=== PATIENT | male | born 1975 | race Caucasian/White ===

== ENCOUNTER 2025-02-10 22:19 | Outpatient (CLI) | payer OTHER, SELFPAY | END 2025-02-10 22:20 | disposition home or self-care (01) | LOC: AMB 02-11 11:19 | PROVIDERS: Visit Provider Family Medicine | DX: S39.92XA Unspecified injury of lower back, initial encounter (principal); V68.0XXA Driver of heavy transport vehicle injured in noncollision transport accident in nontraffic accident, initial encounter; Y92.410 Unspecified street and highway as the place of occurrence of the external cause | CPT/HCPCS: A0425; A0427 ==